=== PATIENT | female | born 1945 | race Caucasian/White ===

== ENCOUNTER 2017-06-23 15:12 | Emergency (ER) | payer MEDICARE ==
[~2017-06-23] VITALS: Ht 165.1 cm; Wt 77.0 kg
[~2017-06-23 15:12] MED LIST: ADAL60TA9 PO; AMAR2TAB PO; ENAL20TA81 PO; FISH300C2 PO; GLUCTAB PO; HYDR12.56 PO; MAGN1SOL2 PO; MEVA40TA6 PO; OYST500T77 PO; PERC5TAB12 PO; PERI8.6T PO; PIOG15 PO; TAB-TAB PO; TAMS0.4C67 PO
[2017-06-23 15:14] VITALS: BP 144/71; PULSE 104; RESP 16; TEMP 98.2; O2SAT 98
--- NOTE | 2017-06-23 15:32 | PD ---
Physical Exam Time Seen by Provider: 15:32 Narrative 71 y/o female here with abdominal pain for 4 days. Vital signs reviewed. Seen at triage desk. Awaiting bed placement. Data Data Last Documented VS Vital Signs Date Time Temp Pulse Resp B/P Pulse Ox O2 Delivery O2 Flow Rate FiO2 06/23/17 15:14 98.2 104 16 144/71 98 MDM Medical Record Reviewed: Yes Supervised Visit with CHARISSE: No Brandon Hess Jun 23, 2017 15:32
== END 2017-06-23 18:32 | disposition left against medical advice (07) ==
LOC: NED 15:12
DX: R10.9 Unspecified abdominal pain (principal)
CPT/HCPCS: 99281